=== PATIENT | female | born 1940 | race Caucasian/White ===

== ENCOUNTER 2020-02-13 17:55 | Emergency (ER) | payer MEDICARE, OTHER ==
--- NOTE | 2020-02-13 18:22 | ERPHSYRPT ---
- History of Present Illness Time Seen by Provider: 02/13/20 18:10 Source: patient Exam Limitations: no limitations Patient Subjective Stated Complaint: Pt states "About 5 pm, I got this odd pain in my head in one spot and I felt really odd. The pain lasted only a few seconds but I did not like it." Triage Nursing Assessment: Pt presented alert and oriented X 3, skin pwd pt ambulates with an upright steady gait, able to speak in clear full sentences. Pt has no facial droop, no unilateral weakness. Physician History: 79 years old female presented in the ER with chief complaint of off-and-on dizziness lightheadedness for the last few days and around 1710 she had a sudden onset sharp pain right parietal area which lasted for a few seconds and improved without any intervention. She was feeling more dizzy/lightheaded and not feeling herself for a few minutes but started to improve. He was also feeling as if she was going to pass out and later broken to sweats. She was also having some palpitations but no shortness of breath. She denies any room spinning sensation denies any numbness tingling or focal weakness. Denies any facial droop, difficulty speech or visual symptoms. 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 No abdominal pain nausea or vomiting reported. Patient is feeling better now Denies any difficulty ambulation or loss of balance. Also reported having similar symptoms multiple times over the course of the years but lately getting a little bit more frequent. No chest pain. Time of Onset/Last Time Seen Normal: 1710 today Timing/Duration: hour(s), sudden, improved Severity: moderate Character of Deficits: none Deficits: no difficulties Baseline/Normal Cognition: alert oriented x 3 Current Cognition: alert oriented x 3 Baseline Gait: walks w/o assistance Associated Symptoms: denies symptoms Allergies/Adverse Reactions: No Known Drug Allergies Allergy (Verified 10/30/19 13:05) Home Medications: Amlodipine Besylate 5 mg [Norvasc 5 mg] 5 mg PO DAILY 04/27/19 [History] Denosumab 60 mg [Prolia 60 mg Injection] 60 mg SQ UD 04/27/19 [History] Lisinopril 20 mg [Zestril 20 MG] 20 mg PO DAILY 04/27/19 [History] Multivitamin [Multivitamins] 1 each PO DAILY 04/27/19 [History] Temazepam 15 mg [Restoril 15 MG] 1 cap PO DAILY 02/13/20 [History] Hx Tetanus, Diphtheria Vaccination/Date Given: Yes Hx Influenza Vaccination/Date Given: Yes Hx Pneumococcal Vaccination/Date Given: Yes Immunizations Up to Date: Yes Travel Risk - International Travel Have you traveled outside of the country in past 3 weeks: No Have you or anyone close to you been diagnosed with or: No Do your reside in a community with a known COVID-19 case?: Yes If Yes where:: [place] - Coronavirus Screening Has patient experienced Coronavirus symptoms: No - Review of Systems Constitutional: No Symptoms Eyes: No Symptoms Ears, Nose, & Throat: No Symptoms Respiratory: No Symptoms Cardiac: Palpitations Abdominal/Gastrointestinal: No Symptoms Genitourinary Symptoms: No Symptoms Musculoskeletal: No Symptoms Skin: No Symptoms Neurological: No Symptoms, Headache Psychological: No Symptoms Endocrine: No Symptoms Hematologic/Lymphatic: No Symptoms Immunological/Allergic: No Symptoms - Past Medical History Pertinent Past Medical History: Yes Neurological History: No Pertinent History ENT History: No Pertinent History Cardiac History: Hypertension Respiratory History: No Pertinent History Endocrine Medical History: No Pertinent History Musculoskeletal History: Osteoarthritis GI Medical History: GERD History: No Pertinent History Psycho-Social History: No Pertinent History Female Reproductive Disorders: No Pertinent History Other Medical History: Neck surgery due to DDD - Past Surgical History Past Surgical History: Yes Neuro Surgical History: Other Cardiac: No Pertinent History Respiratory: No Pertinent History Gastrointestinal: Appendectomy Genitourinary: No Pertinent History Musculoskeletal: Orthopedic Surgery Female Surgical History: Hysterectomy Other Surgical History: neck, l thumb - Social History Smoking Status: Former smoker Exposure to second hand smoke: Yes Drug Use: none Patient Lives Alone: Yes - Female History Hx Now: No - Nursing Vital Signs Nursing Vital Signs: Initial Vital Signs Temperature 98.2 F 02/13/20 18:00 Pulse Rate 90 02/13/20 18:00 Respiratory Rate 18 02/13/20 18:00 Blood Pressure 159/94 02/13/20 18:00 O2 Sat by Pulse Oximetry 97 02/13/20 18:00 Pain Scale Pain Intensity 0 - [place] Coma Scale Best Eye Response ([place]): (4) open spontaneously Best Verbal Response ([place]): (5) oriented Best Motor Response ([place]lee): (6) obeys commands Ashlee Total: 15 - Physical Exam General Appearance: no apparent distress, alert, anxiety Eye Exam: bilateral eye: normal inspection, PERRL, EOMI Ears, Nose, Throat Exam: normal ENT inspection, TMs normal, pharynx normal Neck Exam: normal inspection, non-tender, supple, full range of motion Respiratory: normal breath sounds, lungs clear Cardiovascular: regular rate/rhythm, normal heart sounds Gastrointestinal: soft, No tenderness, No distention Back Exam: normal inspection Extremity Exam: normal inspection, normal range of motion Mental Status: alert, oriented x 3, cooperative link cutter Exam: normal hearing, normal speech, PERRL Coordination/Gait: normal finger to nose, normal gait, normal cerebellar function Motor/Sensory: negative Babinski's sign, weak motor strength LUE (Chronically) DTR: bicep (R): 2+, bicep (L): 2+, knee (R): 2+, knee (L): 2+ Skin Exam: normal color SpO2 Interpretation: normal SpO2: 97 - Course EKG Interpreted by Me: RATE (84), Sinus Rhythm, NORMAL AXIS, NORMAL INTERVALS, Q -wave (Anterior leads), Other (LVH) Ordered Tests: Active Orders 24 hr Category Date Time Status Electron Beam Photo Mask Maker STAT Care 02/13/20 18:23 Active EKG-ER Only STAT Care 02/13/20 18:22 Active IV Insertion STAT Care 02/13/20 18:22 Active NPO (ED) STAT Care 02/13/20 18:22 Active Pulse Oximetry (ED) STAT Care 02/13/20 18:22 Active CHEST 1 VIEW (PORTABLE) Stat Exams 02/13/20 18:22 Taken HEAD WITHOUT CONTRAST [CT] Stat Exams 02/13/20 18:22 Taken BMP Stat Lab 02/13/20 18:15 Completed CBC W DIFF Stat Lab 02/13/20 18:15 Completed PTT Stat Lab 02/13/20 18:15 Completed TROPONIN Q3H Lab 02/13/20 18:15 Completed TROPONIN Q3H Lab 02/13/20 21:30 Ordered TROPONIN Q3H Lab 02/14/20 00:30 Ordered TROPONIN Q3H Lab 02/14/20 03:30 Ordered TROPONIN Q3H Lab 02/14/20 06:30 Ordered UA W/RFX UR CULTURE Stat Lab 02/13/20 18:47 Completed Lab/Rad Data: Laboratory Result Diagrams 02/13/20 18:15 02/13/20 18:15 Laboratory Results 02/13/20 02/13/20 02/13/20 Range/Units 18:47 18:15 18:15 WBC (4.0-10.5) K/mm3 RBC (4.1-5.4) M/mm3 Hgb (12.0-16.0) gm/dl Hct (35-47) % MCV (78-100) fl MCH (26-32) pg MCHC (32-36) g/dl RDW (11.5-14.0) % Plt Count (150-450) K/mm3 MPV (7.5-11.0) fl Gran % (36.0-66.0) % Eos # (Auto) (0-0.5) Absolute Lymphs (auto) (1.0-4.6) Absolute Monos (auto) (0.0-1.3) Lymphocytes % (24.0-44.0) % Monocytes % (0.0-12.0) % Eosinophils % (0.00-5.0) % Basophils % (0.0-0.4) % Absolute Granulocytes (1.4-6.9) Basophils # (0-0.4) APTT 27.6 (25.3-37.0) SECONDS Sodium (137-145) mmol/L Potassium (3.5-5.1) mmol/L Chloride (98-107) mmol/L Carbon Dioxide (22-30) mmol/L Anion Gap (5-15) MEQ/L BUN (7-17) mg/dL Creatinine (0.52-1.04) mg/dL Estimated GFR ML/MIN Glucose (74-106) mg/dL Calcium (8.4-10.2) mg/dL Troponin I 0.019 (0.000-0.034) ng/mL Urine Color YELLOW (YELLOW) Urine Appearance SLIGHTLY CLOUDY (CLEAR) Urine pH 6.0 (5-6) Ur Specific [place] 1.011 (1.005-1.025) Urine Protein NEGATIVE (Negative) Urine Ketones NEGATIVE (NEGATIVE) Urine Blood MODERATE (0-5) [place]/ul Urine Nitrite NEGATIVE (NEGATIVE) Urine Bilirubin NEGATIVE (NEGATIVE) Urine Urobilinogen NEGATIVE (0-1) mg/dL Ur Leukocyte Esterase NEGATIVE (NEGATIVE) Urine WBC (Auto) 0-2 (0-5) /HPF Urine RBC (Auto) 3-5 (0-2) /HPF U Epithel Cells (Auto) NONE (FEW) /HPF Urine Bacteria (Auto) NONE (NEGATIVE) /HPF Urine Culture Reflexed NO (NO) Urine Glucose NEGATIVE (NEGATIVE) mg/dL 02/13/20 02/13/20 Range/Units 18:15 18:15 WBC 9.2 (4.0-10.5) K/mm3 RBC 4.34 (4.1-5.4) M/mm3 Hgb 13.6 (12.0-16.0) gm/dl Hct 41.8 (35-47) % MCV 96.3 (78-100) fl MCH 31.3 (26-32) pg MCHC 32.5 (32-36) g/dl RDW 13.0 (11.5-14.0) % Plt Count 296 (150-450) K/mm3 MPV 10.8 (7.5-11.0) fl Gran % 47.9 (36.0-66.0) % Eos # (Auto) 0.17 (0-0.5) Absolute Lymphs (auto) 3.68 (1.0-4.6) Absolute Monos (auto) 0.93 (0.0-1.3) Lymphocytes % 39.9 (24.0-44.0) % Monocytes % 10.1 (0.0-12.0) % Eosinophils % 1.8 (0.00-5.0) % Basophils % 0.3 (0.0-0.4) % Absolute Granulocytes 4.42 (1.4-6.9) Basophils # 0.03 (0-0.4) APTT (25.3-37.0) SECONDS Sodium 141 (137-145) mmol/L Potassium 4.6 (3.5-5.1) mmol/L Chloride 109 H (98-107) mmol/L Carbon Dioxide 25 (22-30) mmol/L Anion Gap 11.3 (5-15) MEQ/L BUN 20 H (7-17) mg/dL Creatinine 0.59 (0.52-1.04) mg/dL Estimated GFR > 60.0 ML/MIN Glucose 95 (74-106) mg/dL Calcium 8.9 (8.4-10.2) mg/dL Troponin I (0.000-0.034) ng/mL Urine Color (YELLOW) Urine Appearance (CLEAR) Urine pH (5-6) Ur Specific [place] (1.005-1.025) Urine Protein (Negative) Urine Ketones (NEGATIVE) Urine Blood (0-5) [place]/ul Urine Nitrite (NEGATIVE) Urine Bilirubin (NEGATIVE) Urine Urobilinogen (0-1) mg/dL Ur Leukocyte Esterase (NEGATIVE) Urine WBC (Auto) (0-5) /HPF Urine RBC (Auto) (0-2) /HPF U Epithel Cells (Auto) (FEW) /HPF Urine Bacteria (Auto) (NEGATIVE) /HPF Urine Culture Reflexed (NO) Urine Glucose (NEGATIVE) mg/dL - Progress Progress: improved, re-examined Progress Note: 02/13/20 20:23 9 years old is evaluated for sudden onset right-sided headache for few seconds and lightheadedness with feeling of passing out associated with palpitations. She has grossly nonfocal neuro exam for any new deficit but she has some chronic numbness in hands and feet and some weakness in the left forearm/hand. She is made stroke activated. CT head did not show any new findings but old stroke related changes. EKG negative for ischemic changes or arrhythmias. I have obtained specialist construction equipment mechanic neurology consult who do not think patient has stroke but more of a presyncope or dizziness due to cardiac causes possible intermittent arrhythmias and needs outpatient Holter monitoring and further evaluation. I have offered patient observation admission with telemetry she wants to go home. I think this is reasonable And she would follow-up outpatient with her primary care. She remained asymptomatic throughout stay in the ER. Discussed signs symptoms of worsening needing return to ER which she seems understanding. Stable for discharge. Discussed with : Other (Tele neurology) Counseled pt/family regarding: lab results, diagnosis, need for follow-up, rad results - Departure Departure Disposition: Home Clinical Impression: Dizziness, Palpitations Condition: Stable Critical Care Time: No Referrals: GOLDY URENA [Primary Care Provider] - (1-2 days for re evaluation and holter monitoring ) GAL CRAIG [ACTIVE STAFF] - (Call for appointment in 1 to 2 days) Instructions: Dizziness, Nonvertigo, (DC) Additional Instructions: Plenty of fluids. Follow-up with your primary care physician for reevaluation and Holter monitoring also may need cardiology referral/evaluation. Return to ER for any worsening or recurrence of symptoms.
[2020-02-13 18:44] LABS: Absolute Neutrophil Ct (ANC) 4.42 (1.4-6.9); BASOPHIL % 0.3 % (0.0-0.4); Basophil (Absolute #) 0.03 (0-0.4); Eosinophil % 1.8 % (0.00-5.0); Eosinophil (Absolute #) 0.17 (0-0.5); Hematocrit 41.8 % (35-47); Hemoglobin 13.6 gm/dl (12.0-16.0); Lymphocyte (Absolute #) 3.68 (1.0-4.6); Lymphocytes % 39.9 % (24.0-44.0); Mean Cell Volume 96.3 fl (78-100); Mean Corpuscular Hemoglobin 31.3 pg (26-32); Mean Corpuscular Hgb Concent. 32.5 g/dl (32-36); Mean Platelet Volume 10.8 fl (7.5-11.0); Monocyte (Absolute #) 0.93 (0.0-1.3); Monocytes % 10.1 % (0.0-12.0); Neutrophil % 47.9 % (36.0-66.0); Platelet Count 296 K/mm3 (150-450); Red Blood Count 4.34 M/mm3 (4.1-5.4); White Blood Count 9.2 K/mm3 (4.0-10.5)
[2020-02-13 18:53] LABS: ANION GAP 11.3 MEQ/L (5-15); BLOOD UREA NITROGEN 20 mg/dL (7-17); CHLORIDE 109 mmol/L (98-107); Calcium 8.9 mg/dL (8.4-10.2); Carbon Dioxide 25 mmol/L (22-30); Creatinine 1 0.59 mg/dL (0.52-1.04); Glucose 95 mg/dL (74-106); Potassium 4.6 mmol/L (3.5-5.1); SODIUM 141 mmol/L (137-145)
[2020-02-13 18:58] LABS: Appearance SLIGHTLY CLOUDY (CLEAR); Bilirubin NEGATIVE (NEGATIVE); Blood MODERATE Ery/ul (0-5); Glucose NEGATIVE (NEGATIVE); Ketones NEGATIVE (NEGATIVE); Leukocyte Esterase NEGATIVE (NEGATIVE); Nitrite NEGATIVE (NEGATIVE); Protein,Urine Dip NEGATIVE (Negative); Specific Gravity 1.011 (1.005-1.025); Urobilinogen NEGATIVE mg/dL (0-1); WBC 0-2 /HPF (0-5)
[2020-02-13 20:24] VITALS: BP 144/70; PULSE 85
[2020-02-13 20:25] VITALS: O2SAT 97
--- NOTE | 2020-02-14 08:39 | XRAY ---
Indication: Dizziness. Possible stroke. Comparison: None Portable chest demonstrates minimal bibasilar fibrosis/scarring and small right lung base calcified granuloma. No focal infiltrate, consolidation, or large effusion. Heart is not enlarged. Descending aorta tortuous. Bony thorax intact with osteopenia, mild degenerative changes, and partially visualized lower cervical fusion hardware. Impression: Nonacute chest with chronic features.
--- NOTE | 2020-02-14 08:39 | XRAY ---
Indication: Dizziness. Possible stroke. Multiple contiguous axial images obtained through the head without contrast. Comparison: None There is age-appropriate global atrophy and moderate periventricular degenerative micro-ischemia bilaterally. Left vertex demonstrates small focus of encephalomalacia posteriorly favoring old infarct. Additional small bilateral basal ganglia infarcts. No acute intracranial hemorrhage, hydrocephalus, or mass effect. Fourth ventricle is midline. Bony calvarium intact. Visualized paranasal sinuses and mastoid air cells are clear. Impression: 1. Atrophy and degenerative micro-ischemia within normal limits for patient's age. 2. 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 3. No acute intracranial abnormalities. Follow-up CT or MRI may yield further information if there remains clinical concern.
== END 2020-02-13 20:35 | disposition home or self-care (01) ==
LOC: ED 17:55
DX: R42 Dizziness and giddiness (principal); R00.2 Palpitations; Z79.899 Other long term (current) drug therapy; K21.9 Gastro-esophageal reflux disease without esophagitis; M50.30 Other cervical disc degeneration, unspecified cervical region; R55 Syncope and collapse
CPT/HCPCS: 36000; 36415; 70450; 71045; 80048; 81001; 84484; 85025; 85730; 93005; 93041; 94760; 99284

== ENCOUNTER 2021-08-31 15:48 | Emergency (ER) | payer MEDICARE, OTHER ==
[2021-08-31] MEDS ORDERED: TORAdol 30 mg Injection IV ONE (16:28)
[2021-08-31] MEDS ORDERED: TORAdol 30 mg Injection ONE (16:29)
[2021-08-31 16:48] LABS: Absolute Neutrophil Ct (ANC) 3.89 (1.4-6.9); BASOPHIL % 0.3 % (0.0-0.4); Basophil (Absolute #) 0.02 (0-0.4); Eosinophil % 2.4 % (0.00-5.0); Eosinophil (Absolute #) 0.19 (0-0.5); Hemoglobin 12.9 gm/dl (12.0-16.0); Lymphocyte (Absolute #) 3.09 (1.0-4.6); Lymphocytes % 39.1 % (24.0-44.0); Mean Cell Volume 96.5 fl (78-100); Mean Corpuscular Hemoglobin 30.4 pg (26-32); Mean Corpuscular Hgb Concent. 31.5 g/dl (32-36); Mean Platelet Volume 10.2 fl (7.5-11.0); Monocyte (Absolute #) 0.72 (0.0-1.3); Monocytes % 9.1 % (0.0-12.0); Neutrophil % 49.1 % (36.0-66.0); Platelet Count 321 K/mm3 (150-450); Red Blood Count 4.25 M/mm3 (4.1-5.4); Red Cell Distribution Width 12.8 % (11.5-14.0); White Blood Count 7.9 K/mm3 (4.0-10.5)
--- NOTE | 2021-08-31 16:48 | ERPHSYRPT ---
- History of Present Illness Source: patient Exam Limitations: no limitations Patient Subjective Stated Complaint: PT states "I fell on tuesday and my lower back and right side hurts." Triage Nursing Assessment: PT presented alert and oriented X3, skin wpd Pt ambulates with a limp. Pt has slight bruising noted to lower back and tenderness to right side. 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 Pt denies LOC/head injury/C,T, and L spine pain/hip pain/Upper-lower extremity pain. She denies syncope/chest pain/focal weakness. Occurred: other (3 days ago) Reason for Fall: slipped Injuries/Pain Location: back (R lateral-posterior inferior thorax/R CVA) Loss of Consciousness: no loss of consciousness Quality: aching Severity of Pain-Max: moderate Severity of Pain-Current: moderate Modifying Factors: Improves With: immobilization Associated Symptoms (Fall): back pain, No abdominal pain, No confusion, No chest pain, No dizziness, No extremity injury, No headache, No lightheadedness, No muscle spasms, No nausea, No neck pain, No ringing in ears, No seizures, No shortness of breath, No slurred speech, No trouble walking, No vomiting, No vision changes Allergies/Adverse Reactions: No Known Drug Allergies Allergy (Verified 05/29/21 09:07) Home Medications: Amlodipine Besylate 5 mg [Norvasc 5 mg] 5 mg PO DAILY 04/27/19 [History] Denosumab 60 mg [Prolia 60 mg Injection] 60 mg SQ UD 04/27/19 [History] Lisinopril 20 mg [Zestril 20 MG] 20 mg PO DAILY 04/27/19 [History] Multivitamin [Multivitamins] 1 each PO DAILY 04/27/19 [History] Temazepam 15 mg [Restoril 15 MG] 1 cap PO DAILY 02/13/20 [History] Hx Tetanus, Diphtheria Vaccination/Date Given: Yes Hx Influenza Vaccination/Date Given: Yes Hx Pneumococcal Vaccination/Date Given: Yes Immunizations Up to Date: Yes Travel Risk - International Travel Have you traveled outside of the country in past 3 weeks: No - Coronavirus Screening Are you exhibiting any of the following symptoms?: No Close contact with a COVID-19 positive Pt in past 14-21 Days: No - Vaccine Status Have you recieved a Covid-19 vaccination: Yes 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: [employer] - Vaccination Dates Date of 2cond Vaccination (if applicable): 10/2020 Comment: booster in may - Review of Systems Constitutional: No Symptoms Eyes: No Symptoms Ears, Nose, & Throat: No Symptoms Respiratory: No Symptoms Cardiac: No Symptoms Abdominal/Gastrointestinal: No Symptoms Genitourinary Symptoms: No Symptoms Musculoskeletal: No Symptoms, Back Pain Skin: No Symptoms Neurological: No Symptoms Psychological: No Symptoms Endocrine: No Symptoms Hematologic/Lymphatic: No Symptoms Immunological/Allergic: No Symptoms - Past Medical History Pertinent Past Medical History: Yes Neurological History: No Pertinent History ENT History: No Pertinent History Cardiac History: Hypertension Respiratory History: No Pertinent History Endocrine Medical History: No Pertinent History Musculoskeletal History: Osteoarthritis GI Medical History: GERD History: No Pertinent History Psycho-Social History: No Pertinent History Female Reproductive Disorders: No Pertinent History Other Medical History: Neck surgery due to DDD - Past Surgical History Past Surgical History: Yes Neuro Surgical History: Other Cardiac: No Pertinent History Respiratory: No Pertinent History Gastrointestinal: Appendectomy Genitourinary: No Pertinent History Musculoskeletal: Orthopedic Surgery Female Surgical History: Hysterectomy Other Surgical History: neck, l thumb - Social History Smoking Status: Former smoker Exposure to second hand smoke: No Drug Use: none Patient Lives Alone: No Significant Family History: no pertinent family hx - Female History Hx Now: No - Nursing Vital Signs Nursing Vital Signs: Initial Vital Signs Temperature 97.5 F 08/31/21 16:01 Pulse Rate 76 08/31/21 16:01 Respiratory Rate 20 08/31/21 16:01 Blood Pressure 161/72 08/31/21 16:01 O2 Sat by Pulse Oximetry 95 08/31/21 16:01 Pain Scale Pain Intensity 4 Hypertensive - [place] Coma Score Best Eye Response ([place]lee): (4) open spontaneously Best Verbal Response ([place]): (5) oriented Best Motor Response ([place]): (6) obeys commands Ashlee Total: 15 - Physical Exam General Appearance: no apparent distress Head Injury: no evidence of injury Eye Exam: PERRL/EOMI, eyes nml inspection ENT Exam: airway nml, nml ext.inspection, No evidence of ENT injury, No clear fluid (ears), No clear fluid (nose), No midface instability Neck Exam: supple, trachea midline, full range of motion, normal inspection (C- spine nttp) Respiratory/Chest Exam: normal breath sounds, No chest tenderness, No respiratory distress, No ecchymosis Cardiovascular Exam: normal heart sounds, regular rate/rhythm, No murmur Gastrointestinal Exam: soft, normal bowel sounds, No tenderness Back Exam: other (R posterior-lateral, inferior thorax TTP/R CVA TTP) Extremity Exam: normal inspection, normal range of motion, capillary refill <3 sec, pelvis stable Peripheral Pulses: carotid (R): 2+, carotid (L): 2+ Neurologic Exam: alert, oriented x 3, cooperative, painter helper spray II-XII nml as tested, normal mood/affect, nml cerebellar function, nml station & gait, sensation nml, No motor deficits, No sensory deficit Skin Exam: normal color, warm, dry SpO2 Interpretation: normal SpO2: 95 O2 Delivery: Room Air - Course Nursing assessment & vital signs reviewed: Yes - CT Exams Chest CT Interpretation: Discussed w/radiologist (CT chest w contrast-Nothing acute) Abdomen/Pelvis CT Interpretation: Discussed w/radiologist (Fecal stasis/Enlarging B renal cysts) Ordered Tests: Active Orders 24 hr Category Date Time Status ABDOMEN AND PELVIS W CONTRAST [CT] Stat Exams 08/31/21 16:27 Taken CHEST WITH CONTRAST [CT] Stat Exams 08/31/21 16:27 Taken CBC W DIFF Stat Lab 08/31/21 16:40 Completed CMP Stat Lab 08/31/21 16:40 Completed Medication Summary Discontinued Medications Generic Name Dose Route Start Last Admin Trade Name Varinder PRN Reason Stop Dose Admin Ketorolac Tromethamine 15 mg 08/31/21 16:28 08/31/21 16:30 Ketorolac Tromethamine 30 Mg/Ml Inj IV 08/31/21 16:29 15 mg STAT ONE Administration Ketorolac Tromethamine Confirm 08/31/21 16:29 Ketorolac Tromethamine 30 Mg/Ml Inj Administered 08/31/21 16:30 Dose 30 mg .ROUTE .STK-MED ONE Lab/Rad Data: Laboratory Result Diagrams 08/31/21 16:40 08/31/21 16:40 Laboratory Results 08/31/21 08/31/21 Range/Units 16:40 16:40 WBC 7.9 (4.0-10.5) K/mm3 RBC 4.25 (4.1-5.4) M/mm3 Hgb 12.9 (12.0-16.0) gm/dl Hct 41.0 (35-47) % MCV 96.5 (78-100) fl MCH 30.4 (26-32) pg MCHC 31.5 L (32-36) g/dl RDW 12.8 (11.5-14.0) % Plt Count 321 (150-450) K/mm3 MPV 10.2 (7.5-11.0) fl Gran % 49.1 (36.0-66.0) % Eos # (Auto) 0.19 (0-0.5) Absolute Lymphs (auto) 3.09 (1.0-4.6) Absolute Monos (auto) 0.72 (0.0-1.3) Lymphocytes % 39.1 (24.0-44.0) % Monocytes % 9.1 (0.0-12.0) % Eosinophils % 2.4 (0.00-5.0) % Basophils % 0.3 (0.0-0.4) % Absolute Granulocytes 3.89 (1.4-6.9) Basophils # 0.02 (0-0.4) Sodium 138 (137-145) mmol/L Potassium 4.3 (3.5-5.1) mmol/L Chloride 105 (98-107) mmol/L Carbon Dioxide 25 (22-30) mmol/L Anion Gap 12.4 (5-15) MEQ/L BUN 14 (7-17) mg/dL Creatinine 0.85 (0.52-1.04) mg/dL Estimated GFR > 60.0 ML/MIN Glucose 91 (74-106) mg/dL Calcium 8.8 (8.4-10.2) mg/dL Total Bilirubin 0.50 (0.2-1.3) mg/dL AST 29 (14-36) U/L ALT 19 (0-35) U/L Alkaline Phosphatase 59 (38-126) U/L Serum Total Protein 6.8 (6.3-8.2) g/dL Albumin 4.0 (3.5-5.0) g/dL - Progress Progress: improved Progress Note: 08/31/21 20:41 15mg IV Toradol 08/31/21 21:16 CT scan results reviewed w pt Counseled pt/family regarding: lab results, diagnosis, need for follow-up, rad results - Departure Departure Disposition: Home Clinical Impression: Contusion, Back contusion Condition: Stable Critical Care Time: No Referrals: ANTONIA FORBES [Primary Care Provider] - Follow up/PCP as directed Instructions: Contusion (DC), Preventing Falls Additional Instructions: Pain meds as needed(use a stool softener with pain meds) Follow up with your family MD for continued pain Return to ER as needed Prescriptions: Hydrocodone/Acetaminophen [Hydrocodone-Acetamin 5-325 mg] 1 tab PO Q6HPRN PRN #8 tablet MDD 4 PRN Reason: Pain
[2021-08-31 17:27] LABS: ALKALINE PHOSPHATASE 59 U/L (38-126); ANION GAP 12.4 MEQ/L (5-15); BLOOD UREA NITROGEN 14 mg/dL (7-17); CHLORIDE 105 mmol/L (98-107); Calcium 8.8 mg/dL (8.4-10.2); Carbon Dioxide 25 mmol/L (22-30); Creatinine 1 0.85 mg/dL (0.52-1.04); EST GLOMERULAR FILTRATION RATE > 60.0 ML/MIN; Glucose 91 mg/dL (74-106); Potassium 4.3 mmol/L (3.5-5.1); SGOT/AST 29 U/L (14-36); SGPT/ALT 19 U/L (0-35); SODIUM 138 mmol/L (137-145); Total Protein 6.8 g/dL (6.3-8.2)
[2021-08-31 17:48] VITALS: BP 155/61
[2021-08-31 20:43] VITALS: O2SAT 95
[2021-08-31 20:53] VITALS: PULSE 72
--- NOTE | 2021-09-01 09:10 | XRAY ---
Indication: Pain following fall 4 days ago. Multiple contiguous axial images obtained through the chest using 80 cc Isovue 370 contrast. Comparison: None Lungs demonstrate moderate diffuse pulmonary emphysema, mild bibasilar fibrosis/scarring, and small right posterior garter calcified granuloma. No suspicious pulmonary mass, infiltrate, consolidation, effusion, or pneumothorax. Heart is not enlarged. Aorta is normal in course and caliber. Small right hilar calcified node. No pathologic mediastinal/hilar lymphadenopathy. Small hiatal hernia. Bony thorax demonstrate osteopenia, mild/moderate degenerative changes throughout the spine, moderate degenerative changes of both shoulders, and incompletely visualized lower cervical fusion hardware. CT abdomen/pelvis reported separately. Impression: 1. Pulmonary emphysema, scattered fibrosis/scarring, small hiatal hernia, chronic bony findings, and old granulomatous disease. 2. Remaining CT chest with contrast exam is negative.
--- NOTE | 2021-09-01 09:15 | XRAY ---
Indication: Pain following fall 4 days ago. Multiple contiguous axial images obtained through the abdomen and pelvis using 80 cc Isovue 370 contrast. Comparison: September 21, 2010. CT chest reported separately. Noncontrasted stomach and bowel loops appear nonobstructed. Normal appendix. There is now moderate fecal debris in the ascending and transverse colon. New descending/sigmoid diverticulosis. No free fluid/air. Interval enlarging bilateral renal cysts, largest right midpole measuring 3.5 x 2.7 cm. Again a few splenic calcified granulomas and hysterectomy. Remaining liver, gallbladder, pancreas, spleen, adrenal glands, kidneys, ureters, and bladder are unremarkable. Again mild scattered aortoiliac calcifications. No AAA or pathologic retroperitoneal lymphadenopathy. Osseous structures again demonstrates osteopenia with progressive worsening mild/moderate degenerative spondylosis throughout the spine. Stable grade 1 L4 spondylolisthesis. Impression: 1. New right hemicolon fecal stasis and scattered colonic diverticulosis. 2. Enlarging multiple bilateral renal cysts. 3. Again osteopenia with worsening multilevel degenerative spondylosis with stable grade 1 L4 spondylolisthesis. 4. Remaining CT abdomen/pelvis with contrast exam is negative.
== END 2021-08-31 20:54 | disposition home or self-care (01) ==
LOC: ED 15:48
DX: S20.221A Contusion of right back wall of thorax, initial encounter (principal); W01.0XXA Fall on same level from slipping, tripping and stumbling without subsequent striking against object, initial encounter; I10 Essential (primary) hypertension; Z79.891 Long term (current) use of opiate analgesic
CPT/HCPCS: 36000; 36415; 71260; 74177; 80053; 85025; 96374; 99284; J1885

== ENCOUNTER 2023-06-29 13:21 | Observation (INO) | payer MEDICARE, OTHER ==
--- NOTE | 2023-06-29 13:30 | ERPHSYRPT ---
- History of Present Illness Time Seen by Provider: 06/29/23 13:29 Source: patient Exam Limitations: no limitations Physician History: This is an 82-year-old white female patient who was at home carrying a tray of chili when she got her shoe caught and then tripped falling directly onto her anterior left knee. He had significant pain. Patient has a history of hyperte nsion and osteoporosis. Ambulance/paramedics were contacted and they transported her to the emergency department. Patient denies chest pain. She denies shortness of breath. She has no pain issues anywhere else. Method of Injury: fell Quality: constant, aching, throbbing Severity of Pain-Max: moderate Severity of Pain-Current: moderate Lower Extremities Pain: thigh: left Associated Symptoms: unable to bear weight Allergies/Adverse Reactions: No Known Drug Allergies Allergy (Verified 06/29/23 13:29) Home Medications: Amlodipine Besylate 5 mg [Norvasc 5 mg] 5 mg PO DAILY 04/27/19 [History] Denosumab 60 mg [Prolia 60 mg Injection] 60 mg SQ UD 04/27/19 [History] Lisinopril 20 mg [Zestril 20 MG] 20 mg PO DAILY 04/27/19 [History] Multivitamin [Multivitamins] 1 each PO DAILY 04/27/19 [History] Hx Tetanus, Diphtheria Vaccination/Date Given: Yes Hx Influenza Vaccination/Date Given: Yes Hx Pneumococcal Vaccination/Date Given: Yes Travel Risk - International Travel Have you traveled outside of the country in past 3 weeks: No - Coronavirus Screening Are you exhibiting any of the following symptoms?: No Close contact with a COVID-19 positive Pt in past 14-21 Days: No - Vaccine Status Have you recieved a Covid-19 vaccination: Yes 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[employer]: [employer] - Vaccination Dates Date of 2cond Vaccination (if applicable): 10/2020 Comment: booster in may - Review of Systems Constitutional: No Symptoms Eyes: No Symptoms Ears, Nose, & Throat: No Symptoms Respiratory: No Symptoms Cardiac: No Symptoms Abdominal/Gastrointestinal: No Symptoms Genitourinary Symptoms: No Symptoms Musculoskeletal: Fall, Injury (Left anterior knee) Skin: No Symptoms Neurological: No Symptoms Psychological: No Symptoms Endocrine: No Symptoms Hematologic/Lymphatic: No Symptoms Immunological/Allergic: No Symptoms All Other Systems: Reviewed and Negative - Past Medical History Pertinent Past Medical History: Yes Neurological History: No Pertinent History ENT History: No Pertinent History Cardiac History: Hypertension Respiratory History: No Pertinent History Endocrine Medical History: No Pertinent History Musculoskeletal History: Osteoarthritis GI Medical History: GERD History: No Pertinent History Psycho-Social History: No Pertinent History Female Reproductive Disorders: No Pertinent History Other Medical History: Neck surgery due to DDD - Past Surgical History Past Surgical History: Yes Neuro Surgical History: Other Cardiac: No Pertinent History Respiratory: No Pertinent History Gastrointestinal: Appendectomy Genitourinary: No Pertinent History Musculoskeletal: Orthopedic Surgery Female Surgical History: Hysterectomy Other Surgical History: neck, l thumb - Social History Smoking Status: Former smoker Exposure to second hand smoke: No Drug Use: none Patient Lives Alone: No Significant Family History: no pertinent family hx - Nursing Vital Signs Nursing Vital Signs: Initial Vital Signs Temperature 97.8 F 06/29/23 13:31 Pulse Rate 74 06/29/23 13:31 Respiratory Rate 18 06/29/23 13:31 Blood Pressure 162/100 06/29/23 13:31 O2 Sat by Pulse Oximetry 99 06/29/23 13:31 Pain Scale Pain Intensity 9 - Physical Exam General Appearance: mild distress, alert, anxiety, thin Eyes, Ears, Nose, Throat Exam: normal ENT inspection, moist mucous membranes Neck Exam: normal inspection, non-tender, supple, full range of motion Cardiovascular/Respiratory Exam: chest non-tender, no respiratory distress Gastrointestinal/Abdominal Exam: non-tender Back Exam: normal inspection, normal range of motion, No CVA tenderness, No vertebral tenderness Hips Exam: bilateral: non-tender, normal inspection, normal range of motion, no evidence of injury Legs Exam: bilateral leg: non-tender, normal inspection, normal range of motion, no evidence of injury Knees Exam: right knee: non-tender, normal inspection, normal range of motion, no evidence of injury, left knee: bone tenderness (Anteriorly), soft tissue tenderness (Anteriorly), swelling (Anteriorly) Ankle Exam: bilateral ankle: non-tender, normal inspection, normal range of motion, no evidence of injury Foot Exam: bilateral foot: non-tender, normal inspection, normal range of motion, no evidence of injury Neuro/Tendon Exam: normal sensation, normal motor functions, normal tendon functions, responds to pain, no evidence tendon injury Mental Status Exam: alert, oriented x 3, cooperative Skin Exam: normal color, warm, dry SpO2 Interpretation: normal O2 Delivery: Room Air - Course Nursing assessment & vital signs reviewed: Yes EKG Interpreted by Me: RATE (80), NORMAL AXIS, NORMAL INTERVALS, Left Bundle Branch Block, Other (No acute ischemic changes on today's twelve-lead EKG.) Ordered Tests: Active Orders 24 hr Category Date Time Status EKG-ER Only STAT Care 06/29/23 13:35 Active IV Insertion STAT Care 06/29/23 13:35 Active KNEE (3 VIEWS) Stat Exams 06/29/23 13:37 Completed CBC W DIFF Stat Lab 06/29/23 13:55 Completed CMP Stat Lab 06/29/23 13:55 Completed PROTIME WITH INR Stat Lab 06/29/23 13:55 Completed Medication Summary Generic Name Dose Route Start Last Admin Trade Name Freq PRN Reason Stop Dose Admin Sodium Chloride 1,000 mls @ 50 mls/hr 06/29/23 13:45 06/29/23 13:53 Sodium Chloride 0.9% 1000 Ml IV 07/29/23 13:44 50 mls/hr .Q20H MARGOT Administration Discontinued Medications Generic Name Dose Route Start Last Admin Trade Name Freq PRN Reason Stop Dose Admin Morphine Sulfate 2 mg 06/29/23 13:35 06/29/23 13:55 Morphine Sulfate 2 Mg/Ml Inj IV 06/29/23 13:36 2 mg STAT ONE Administration Morphine Sulfate Confirm 06/29/23 13:40 Morphine Sulfate 2 Mg/Ml Inj Administered 06/29/23 13:41 Dose 2 mg .ROUTE .STK-MED ONE Morphine Sulfate 4 mg 06/29/23 14:36 06/29/23 14:39 Morphine Sulfate 4 Mg/Ml Injection IV 06/29/23 14:37 4 mg STAT ONE Administration Morphine Sulfate Confirm 06/29/23 14:39 Morphine Sulfate 4 Mg/Ml Injection Administered 06/29/23 14:40 Dose 4 mg .ROUTE .STK-MED ONE Ondansetron HCl 4 mg 06/29/23 13:35 06/29/23 13:54 Ondansetron Hcl 4 Mg/2 Ml Vial IV 06/29/23 13:36 4 mg STAT ONE Administration Ondansetron HCl Confirm 06/29/23 13:40 Ondansetron Hcl 4 Mg/2 Ml Vial Administered 06/29/23 13:41 Dose 4 mg .ROUTE .STK-MED ONE Lab/Rad Data: Laboratory Result Diagrams 06/29/23 13:55 06/29/23 13:55 Laboratory Results 06/29/23 06/29/23 06/29/23 Range/Units 13:55 13:55 13:55 WBC 14.9 H (4.0-10.5) x10^3/uL RBC 4.33 (4.1-5.4) x10^6/uL Hgb 12.9 (12.0-16.0) g/dL Hct 40.3 (35-47) % MCV 93.1 (78-100) fL MCH 29.8 (26-32) pg MCHC 32.0 (32-36) g/dL RDW 12.6 (11.5-14.0) % Plt Count 347 (150-450) x10^3/uL MPV 9.9 (7.5-11.0) fL Gran % 74.0 H (36.0-66.0) % Immature Gran % (Auto) 0.5 H (0.00-0.4) % Nucleat RBC Rel Count 0.0 (0.00-0.1) % Eos # (Auto) 0.12 (0-0.5) x10^3/uL Immature Gran # (Auto) 0.08 H (0.00-0.03) x10^3u/L Absolute Lymphs (auto) 2.77 (1.0-4.6) x10^3/uL Absolute Monos (auto) 0.79 (0.0-1.3) x10^3/uL Absolute Nucleated RBC 0.00 (0.00-0.01) x10^3u/L Lymphocytes % 18.6 L (24.0-44.0) % Monocytes % 5.3 (0.0-12.0) % Eosinophils % 0.8 (0.00-5.0) % Basophils % 0.8 (0.0-0.4) % Absolute Granulocytes 10.98 H (1.4-6.9) x10^3/uL Basophils # 0.12 (0-0.4) x10^3/uL PT 9.9 (9.4-12.5) SECONDS INR 0.90 (0.8-3.0) Sodium 140 (137-145) mmol/L Potassium 5.1 (3.5-5.1) mmol/L Chloride 107 (98-107) mmol/L Carbon Dioxide 26 (22-30) mmol/L Anion Gap 12.5 (5-15) MEQ/L BUN 13 (7-17) mg/dL Creatinine 0.75 (0.52-1.04) mg/dL Estimated GFR > 60.0 ML/MIN Glucose 94 (74-106) mg/dL Calcium 8.9 (8.4-10.2) mg/dL Total Bilirubin 0.40 (0.2-1.3) mg/dL AST 33 (14-36) U/L ALT 19 (0-35) U/L Alkaline Phosphatase 89 (38-126) U/L Serum Total Protein 7.2 (6.3-8.2) g/dL Albumin 4.1 (3.5-5.0) g/dL - Progress Progress: improved, pain not gone completely Progress Note: 06/29/23 14:05 This patient's medical issue is 1 of moderate complexity. Level complexity in the work-up performed is based on review of the patient's past medical history, review of the patient's medication list, review the patient's drug allergy list, history of present illness and physical findings on examination. The work-up in this patient includes placement of intravenous line, CBC, CMP, twelve-lead EKG, three-way view of the left knee, infusion of 4 mg intravenous Zofran, infusion of 2 mg intravenous morphine. 06/29/23 14:51 I reviewed the results of the laboratory data work-up. I interpreted them. There are no acute, emergent findings on the laboratory results. The x-ray of the right knee was interpreted by the radiologist. There is mildly displaced transverse fracture mid patella with anterior soft tissue swelling and small hemarthrosis. 06/29/23 15:[address] Hamilton, orthopedic surgeon at [facility]. I reviewed the patient history, work-up findings including the finding on x-ray of a mildly displaced transverse fracture mid patella. He stated that there is no need to have her transferred to an inpatient setting. We will she can be placed in a knee immobilizer with weightbearing as tolerated and use of walker or cane or crutches. We will provide her with pain control and she is to follow-up at the [facility] fracture clinic tomorrow, 06/30/2023. Counseled pt/family regarding: lab results, diagnosis, need for follow-up, rad results Medical Desision Making - Independent Historian Additional History obtained from: Family - Discussion of managment Care discussed with:: specialist (Dr. Hamilton, [facility] orthopedic surgeon) Reviewed:: Test results Agreed on:: need for follow-up Will see patient: In office (Fracture clinic, [facility], 06/30/2023) - Diagnostic Testing Diagnostic test were ordered, analyzed, and reviewed by me: Yes Radiological Interpretation: Reviewed by me, Teleradiologist Report - Risk of complications The pt has a mod risk of morbidity or mortality based on: Need for prescription drug management - Departure Departure Disposition: Home Clinical Impression: Patella fracture Condition: Stable Critical Care Time: No Referrals: ANTONIA FORBES [Primary Care Provider] - Follow up/PCP as directed Additional Instructions: Ice pack to area 3 times a day for the next 48 hours. Take your medication as prescribed. Follow-up tomorrow morning, 06/30/2023, at 8 AM at the [facility] fracture clinic. Be n.p.o. after midnight in case the fracture clinic decides on surgical intervention Prescriptions: Oxycodone HCl/Acetaminophen [Percocet 5-325 mg Tablet] 1 each PO Q8H PRN PRN #6 tablet MDD 3 PRN Reason: Moderate To Severe Pain
[2023-06-29] MEDS ORDERED: MORPHINE SULFATE 2 MG INJ IV ONE ×2 (13:35→15:33)
[2023-06-29] MEDS ORDERED: Zofran 4 MG/2 ML VIAL IV ONE (13:35)
[2023-06-29] MEDS ORDERED: Zofran 4 MG/2 ML VIAL ONE (13:40)
[2023-06-29] MEDS ORDERED: MORPHINE SULFATE 2 MG INJ ONE ×2 (13:40→15:36)
[2023-06-29] MEDS ORDERED: Sodium Chloride 0.9% 1000 ML 1,000 ML ONE (13:40)
[2023-06-29] MEDS ORDERED: Sodium Chloride 0.9% 1000 ML 1,000 ML IV SCH ×2 (13:45→18:46)
[2023-06-29 13:58] LABS: Absolute Neutrophil Ct (ANC) 10.98 x10^3/uL (1.4-6.9); BASOPHIL % 0.8 % (0.0-0.4); Basophil (Absolute #) 0.12 x10^3/uL (0-0.4); Eosinophil % 0.8 % (0.00-5.0); Eosinophil (Absolute #) 0.12 x10^3/uL (0-0.5); Hematocrit 40.3 % (35-47); Hemoglobin 12.9 g/dL (12.0-16.0); IMMATURE GRAN # 0.08 x10^3u/L (0.00-0.03); IMMATURE GRAN % 0.5 % (0.00-0.4); Lymphocyte (Absolute #) 2.77 x10^3/uL (1.0-4.6); Lymphocytes % 18.6 % (24.0-44.0); Mean Cell Volume 93.1 fL (78-100); Mean Corpuscular Hemoglobin 29.8 pg (26-32); Mean Platelet Volume 9.9 fL (7.5-11.0); Monocyte (Absolute #) 0.79 x10^3/uL (0.0-1.3); Monocytes % 5.3 % (0.0-12.0); Platelet Count 347 x10^3/uL (150-450); Red Blood Count 4.33 x10^6/uL (4.1-5.4); Red Cell Distribution Width 12.6 % (11.5-14.0); White Blood Count 14.9 x10^3/uL (4.0-10.5)
[2023-06-29 14:13] LABS: INR 0.9 (0.8-3.0); PROTIME 9.9 SECONDS (9.4-12.5)
[2023-06-29 14:14] LABS: ALBUMIN 4.1 g/dL (3.5-5.0); ALKALINE PHOSPHATASE 89 U/L (38-126); ANION GAP 12.5 MEQ/L (5-15); BLOOD UREA NITROGEN 13 mg/dL (7-17); CHLORIDE 107 mmol/L (98-107); Calcium 8.9 mg/dL (8.4-10.2); Carbon Dioxide 26 mmol/L (22-30); Creatinine 1 0.75 mg/dL (0.52-1.04); EST GLOMERULAR FILTRATION RATE > 60.0 ML/MIN; Glucose 94 mg/dL (74-106); Potassium 5.1 mmol/L (3.5-5.1); SGOT/AST 33 U/L (14-36); SGPT/ALT 19 U/L (0-35); SODIUM 140 mmol/L (137-145); Total Protein 7.2 g/dL (6.3-8.2)
--- NOTE | 2023-06-29 14:27 | XRAY ---
Indication: Pain following fall. Comparison: None 3 view left knee demonstrates mildly displaced transverse fracture mid patella with anterior soft tissue swelling and small hemarthrosis. Elsewhere osteopenia, minimal medial joint space narrowing, and minimal posterior vascular calcifications.
[2023-06-29] MEDS ORDERED: MORPHINE SULFATE 4 MG INJ IV ONE (14:36)
[2023-06-29] MEDS ORDERED: MORPHINE SULFATE 4 MG INJ ONE (14:39)
[2023-06-29] MEDS ORDERED: Zofran 4 MG/2 ML VIAL IV PRN (18:46)
[2023-06-29] MEDS ORDERED: TYLENOL 325 MG PO PRN (18:46)
[2023-06-29] MEDS: MORPHINE SULFATE 4 MG INJ IV PRN (20:59)
[2023-06-29] MEDS ORDERED: APRESOLINE 20 MG/ML INJ IV PRN (20:59)
--- NOTE | 2023-06-29 21:06 | PCM.HP ---
History of Present Illness - Chief Complaint Chief Complaint: Intractable knee pain History of Present Illness: is a 82 year old female with hx of osteoporosis and HTN presented to ER with c/o left knee pain. She tripped at home after stubbing her toes and falling onto her left knee. Xray here show transverse mildly displaced patella fracture. She is admitted for pain control, and ortho planning surgery tomorrow. She is resting now, surrounded by family. She says he pain is 7 out of 10. She denies passing out, syncope, LOC. Denies fever, chills, SOB, cough, sputum, chest pain, headache, confusion, dysuria - Review of Systems Constitutional: No Symptoms Eyes: No Symptoms Ears, Nose, & Throat: No Symptoms Respiratory: No Symptoms Cardiac: No Symptoms Abdominal/Gastrointestinal: No Symptoms Genitourinary Symptoms: No Symptoms Musculoskeletal: Fall, Joint Pain Skin: No Symptoms Neurological: No Symptoms Psychological: No Symptoms Endocrine: No Symptoms Hematologic/Lymphatic: No Symptoms Immunological/Allergic: No Symptoms Medications & Allergies Home Medications: Home Medication List Amlodipine Besylate 5 mg [Norvasc 5 mg] 5 mg PO DAILY 04/27/19 [History Confirmed 06/29/23] Lisinopril 20 mg [Zestril 20 MG] 20 mg PO DAILY 04/27/19 [History Confirme d 06/29/23] Amitriptyline HCl 25 mg [Amitriptyline 25 mg Tablet] 25 mg PO QHS 06/29/23 [History Confirmed 06/29/23] Calcium Carbonate/Vitamin D3 [Calcium 600 mg-D3 10 Mcg Sfgl] 600 mg PO DAILY 06/29/23 [History Confirmed 06/29/23] Cyanocobalamin (Vitamin B-12) [B-12] 1,000 mg PO DAILY 06/29/23 [History Confirmed 06/29/23] Oxycodone HCl/Acetaminophen [Percocet 5-325 mg Tablet] 1 each PO Q8H PRN PRN #6 tablet MDD 3 06/29/23 [Rx] Allergies/Adverse Reactions: Allergies Allergy/AdvReac Type Severity Reaction Status Date / Time No Known Drug Allergies Allergy Verified 06/29/23 13:29 - Past Medical History Past Medical History: Yes Neurological History: No Pertinent History ENT History: No Pertinent History Cardiac History: Hypertension Respiratory History: No Pertinent History Endocrine Medical History: No Pertinent History Musculoskelatal History: Osteoarthritis GI Medical History: GERD History: No Pertinent History Pyscho-Social History: No Pertinent History Reproductive Disorders: No Pertinent History Comment: Neck surgery due to DDD - Female History Are you now?: No - Past Surgical History Past Surgical History: Yes Neuro Surgical History: Other Cardiac History: No Pertinent History Respiratory Surgery: No Pertinent History GI Surgical History: Appendectomy Genitourinary Surgical Hx: No Pertinent History Musculskeletal Surgical Hx: Orthopedic Surgery Female Surgical History: Hysterectomy Other Surgical History: neck, l thumb, lower back - Social History Smoking Status: Never smoker Exposure to second hand smoke: No Alcohol: None Drug Use: none Significant Family History: no pertinent family hx - Physical Exam Vital Signs: Vital Signs - 24 hr Temp Pulse Resp BP Pulse Ox 06/29/23 19:34 97.8 F 92 H 18 120/57 96 06/29/23 18:46 96 06/29/23 18:37 97.1 F 76 16 141/63 97 06/29/23 17:04 85 18 132/97 95 06/29/23 15:37 84 18 164/90 94 L 06/29/23 14:35 83 18 187/101 95 06/29/23 14:27 80 176/82 96 06/29/23 13:31 97.8 F 74 18 162/100 99 General Appearance: no apparent distress Neurologic Exam: oriented x 3, cooperative Eye Exam: PERRL/EOMI, eyes nml inspection Ears, Nose, Throat Exam: normal ENT inspection Neck Exam: normal inspection, supple, full range of motion Respiratory Exam: normal breath sounds, lungs clear Cardiovascular Exam: regular rate/rhythm, normal heart sounds Gastrointestinal/Abdomen Exam: soft, normal bowel sounds Pelvic Exam: deferred Rectal Exam: deferred Back Exam: normal inspection Extremity Exam: other (swelling and pain ov er left patella) Skin Exam: normal color Results - Labs Lab/Micro Results: Lab Results-Last 24 Hours 06/29/23 06/29/23 06/29/23 Range/Units 13:55 13:55 13:55 WBC 14.9 H (4.0-10.5) x10^3/uL RBC 4.33 (4.1-5.4) x10^6/uL Hgb 12.9 (12.0-16.0) g/dL Hct 40.3 (35-47) % MCV 93.1 (78-100) fL MCH 29.8 (26-32) pg MCHC 32.0 (32-36) g/dL RDW 12.6 (11.5-14.0) % Plt Count 347 (150-450) x10^3/uL MPV 9.9 (7.5-11.0) fL Gran % 74.0 H (36.0-66.0) % Immature Gran % (Auto) 0.5 H (0.00-0.4) % Nucleat RBC Rel Count 0.0 (0.00-0.1) % Eos # (Auto) 0.12 (0-0.5) x10^3/uL Immature Gran # (Auto) 0.08 H (0.00-0.03) x10^3u/L Absolute Lymphs (auto) 2.77 (1.0-4.6) x10^3/uL Absolute Monos (auto) 0.79 (0.0-1.3) x10^3/uL Absolute Nucleated RBC 0.00 (0.00-0.01) x10^3u/L Lymphocytes % 18.6 L (24.0-44.0) % Monocytes % 5.3 (0.0-12.0) % Eosinophils % 0.8 (0.00-5.0) % Basophils % 0.8 (0.0-0.4) % Absolute Granulocytes 10.98 H (1.4-6.9) x10^3/uL Basophils # 0.12 (0-0.4) x10^3/uL PT 9.9 (9.4-12.5) SECONDS INR 0.90 (0.8-3.0) Sodium 140 (137-145) mmol/L Potassium 5.1 (3.5-5.1) mmol/L Chloride 107 (98-107) mmol/L Carbon Dioxide 26 (22-30) mmol/L Anion Gap 12.5 (5-15) MEQ/L BUN 13 (7-17) mg/dL Creatinine 0.75 (0.52-1.04) mg/dL Estimated GFR > 60.0 ML/MIN Glucose 94 (74-106) mg/dL Calcium 8.9 (8.4-10.2) mg/dL Total Bilirubin 0.40 (0.2-1.3) mg/dL AST 33 (14-36) U/L ALT 19 (0-35) U/L Alkaline Phosphatase 89 (38-126) U/L Serum Total Protein 7.2 (6.3-8.2) g/dL Albumin 4.1 (3.5-5.0) g/dL - Radiology Impressions Radiology Exams & Impressions: Radiology Procedures Category Date Time Status KNEE (3 VIEWS) Stat Exams 06/29/23 13:37 Completed Assessment/Plan (1) Patella fracture Current Visit: Yes Status: Acute Assessment & Plan: Left patella fracture: transverse and mildly displaced. Pain manage tonight, and ortho, Dr Hamilton, will see and plan surgery tomorrow Code(s): S82.009A - UNSP FRACTURE OF UNSP PATELLA, INIT FOR CLOS FX (2) Leukocytosis Current Visit: Yes Status: Acute Assessment & Plan: WBC 14.9 - due to stress response. Monitor. no fever, nor other complaint to suspect infection Code(s): D72.829 - ELEVATED WHITE BLOOD CELL COUNT, UNSPECIFIED (3) Essential (primary) hypertension Current Visit: Yes Status: Acute Assessment & Plan: BP high on arrival due to the pain. Resumed home meds - Amlodipine and Lisinopril. Added Hydralazine prn for SBP > 160, DBP > 100 Code(s): I10 - ESSENTIAL (PRIMARY) HYPERTENSION (4) Osteoporosis Current Visit: Yes Status: Acute Assessment & Plan: Continue calcium supplement. Follow-up with PCP for close monitoring Code(s): M81.0 - AGE-RELATED OSTEOPOROSIS W/O CURRENT PATHOLOGICAL FRACTURE Telemedicine Encounter - Telemedicine Encounter Telemedicine Encounter: The entirety of this encounter was performed via Telemedicine" Pt gave me verbal consent to have this telemedicine visit
[2023-06-29] MEDS ORDERED: HEPARIN 5000 UNITS/0.5 ML (HIGH RISK MED) SQ SCH (22:00)
[2023-06-29] MEDS ORDERED: AMITRIPTYLINE 25 MG TABLET PO SCH (22:00)
[2023-06-30] MEDS: MORPHINE SULFATE 4 MG INJ IV PRN (03:35)
[2023-06-30 05:04] LABS: Absolute Neutrophil Ct (ANC) 5.04 x10^3/uL (1.4-6.9); BASOPHIL % 1.1 % (0.0-0.4); Eosinophil % 2.7 % (0.00-5.0); Eosinophil (Absolute #) 0.25 x10^3/uL (0-0.5); Hematocrit 34.6 % (35-47); Hemoglobin 10.9 g/dL (12.0-16.0); IMMATURE GRAN # 0.03 x10^3u/L (0.00-0.03); IMMATURE GRAN % 0.3 % (0.00-0.4); Lymphocyte (Absolute #) 3.31 x10^3/uL (1.0-4.6); Lymphocytes % 35.6 % (24.0-44.0); Mean Corpuscular Hemoglobin 29.6 pg (26-32); Mean Corpuscular Hgb Concent. 31.5 g/dL (32-36); Mean Platelet Volume 10.2 fL (7.5-11.0); Monocyte (Absolute #) 0.58 x10^3/uL (0.0-1.3); Monocytes % 6.2 % (0.0-12.0); Neutrophil % 54.1 % (36.0-66.0); Platelet Count 309 x10^3/uL (150-450); Red Blood Count 3.68 x10^6/uL (4.1-5.4); Red Cell Distribution Width 12.9 % (11.5-14.0); White Blood Count 9.3 x10^3/uL (4.0-10.5)
[2023-06-30 05:05] VITALS: PULSE 91; TEMP 98.5
[2023-06-30 06:55] VITALS: BP 160/75; RESP 16; O2SAT 96
[2023-06-30] MEDS ORDERED: NORVASC 5 MG PO SCH (10:00)
[2023-06-30] MEDS ORDERED: Vitamin B-12 500 MCG PO SCH (10:00)
[2023-06-30] MEDS ORDERED: CALCIUM CARBONATE PO SCH (10:00)
[2023-06-30] MEDS ORDERED: Zestril 20 MG PO SCH (10:00)
[2023-06-30] MEDS ORDERED: NON-FORMULARY ITEM (Cyanocobalamin (Vitamin B-12) [B-12] 1,000 MCG Tablet) PO SCH (10:00)
[2023-06-30] MEDS ORDERED: Calcium 500MG W/Vit D Tablet PO SCH (10:00)
[2023-06-30] MEDS ORDERED: VITAMIN D3 PO SCH (10:00)
[2023-06-30] MEDS ORDERED: [UNRECOGNIZED DRUG - OTHER] PO SCH (10:00)
--- NOTE | 2023-06-30 11:31 | PCM.DS ---
Discharge Summary Date of Admission: 06/29/23 18:11 Date of Discharge: 06/30/23 Admitting Physician: RADHA BARFIELD MD Primary Care Provider: ANTONIA FORBES Allergies Allergies No Known Drug Allergies Allergy (Verified 06/29/23 13:29) Hospital Summary - Hospital Course Hospital Course: 06/29/23 is a 82 year old female with hx of osteoporosis and HTN presented to ER with c/o left knee pain. She tripped at home after stubbing her toes and falling onto her left knee. Xray here show transverse mildly displaced patella fracture. She is admitted for pain control, and ortho planning surgery tomorrow. She is resting now, surrounded by family. She says he pain is 7 out of 10. She denies passing out, syncope, LOC. Denies fever, chills, SOB, cough, sputum, chest pain, headache, confusion, dysuria 06/30/23 Was unable to see pt before leaving this AM. She was tx to ortho at [facility] for surgery. Due to surgery is she staying at [facility]. - Vitals & Intake/Output Vital Signs: Vital Signs Temperature 98.5 F 06/30/23 06:54 Pulse Rate 91 H 06/30/23 06:54 Respiratory Rate 16 06/30/23 06:54 Blood Pressure 160/75 06/30/23 06:54 O2 Sat by Pulse Oximetry 96 06/30/23 06:54 Intake & Output: Intake & Output 06/27/23 06/28/23 06/29/23 06/30/23 11:59 11:59 11:59 11:59 Intake Total 80 Balance 80 Weight 54.6 kg - Lab Result Diagrams: 06/30/23 04:57 06/29/23 13:55 Lab Results-Last 24 Hrs: Lab Results-Last 24 Hours 06/29/23 06/29/23 06/29/23 Range/Units 13:55 13:55 13:55 WBC 14.9 H (4.0-10.5) x10^3/uL RBC 4.33 (4.1-5.4) x10^6/uL Hgb 12.9 (12.0-16.0) g/dL Hct 40.3 (35-47) % MCV 93.1 (78-100) fL MCH 29.8 (26-32) pg MCHC 32.0 (32-36) g/dL RDW 12.6 (11.5-14.0) % Plt Count 347 (150-450) x10^3/uL MPV 9.9 (7.5-11.0) fL Gran % 74.0 H (36.0-66.0) % Immature Gran % (Auto) 0.5 H (0.00-0.4) % Nucleat RBC Rel Count 0.0 (0.00-0.1) % Eos # (Auto) 0.12 (0-0.5) x10^3/uL Immature Gran # (Auto) 0.08 H (0.00-0.03) x10^3u/L Absolute Lymphs (auto) 2.77 (1.0-4.6) x10^3/uL Absolute Monos (auto) 0.79 (0.0-1.3) x10^3/uL Absolute Nucleated RBC 0.00 (0.00-0.01) x10^3u/L Lymphocytes % 18.6 L (24.0-44.0) % Monocytes % 5.3 (0.0-12.0) % Eosinophils % 0.8 (0.00-5.0) % Basophils % 0.8 (0.0-0.4) % Absolute Granulocytes 10.98 H (1.4-6.9) x10^3/uL Basophils # 0.12 (0-0.4) x10^3/uL PT 9.9 (9.4-12.5) SECONDS INR 0.90 (0.8-3.0) Sodium 140 (137-145) mmol/L Potassium 5.1 (3.5-5.1) mmol/L Chloride 107 (98-107) mmol/L Carbon Dioxide 26 (22-30) mmol/L Anion Gap 12.5 (5-15) MEQ/L BUN 13 (7-17) mg/dL Creatinine 0.75 (0.52-1.04) mg/dL Estimated GFR > 60.0 ML/MIN Glucose 94 (74-106) mg/dL Calcium 8.9 (8.4-10.2) mg/dL Total Bilirubin 0.40 (0.2-1.3) mg/dL AST 33 (14-36) U/L ALT 19 (0-35) U/L Alkaline Phosphatase 89 (38-126) U/L Serum Total Protein 7.2 (6.3-8.2) g/dL Albumin 4.1 (3.5-5.0) g/dL 06/30/23 Range/Units 04:57 WBC 9.3 (4.0-10.5) x10^3/uL RBC 3.68 L (4.1-5.4) x10^6/uL Hgb 10.9 L (12.0-16.0) g/dL Hct 34.6 L (35-47) % MCV 94.0 (78-100) fL MCH 29.6 (26-32) pg MCHC 31.5 L (32-36) g/dL RDW 12.9 (11.5-14.0) % Plt Count 309 (150-450) x10^3/uL MPV 10.2 (7.5-11.0) fL Gran % 54.1 (36.0-66.0) % Immature Gran % (Auto) 0.3 (0.00-0.4) % Nucleat RBC Rel Count 0.0 (0.00-0.1) % Eos # (Auto) 0.25 (0-0.5) x10^3/uL Immature Gran # (Auto) 0.03 (0.00-0.03) x10^3u/L Absolute Lymphs (auto) 3.31 (1.0-4.6) x10^3/uL Absolute Monos (auto) 0.58 (0.0-1.3) x10^3/uL Absolute Nucleated RBC 0.00 (0.00-0.01) x10^3u/L Lymphocytes % 35.6 (24.0-44.0) % Monocytes % 6.2 (0.0-12.0) % Eosinophils % 2.7 (0.00-5.0) % Basophils % 1.1 (0.0-0.4) % Absolute Granulocytes 5.04 (1.4-6.9) x10^3/uL Basophils # 0.10 (0-0.4) x10^3/uL PT (9.4-12.5) SECONDS INR (0.8-3.0) Sodium (137-145) mmol/L Potassium (3.5-5.1) mmol/L Chloride (98-107) mmol/L Carbon Dioxide (22-30) mmol/L Anion Gap (5-15) MEQ/L BUN (7-17) mg/dL Creatinine (0.52-1.04) mg/dL Estimated GFR ML/MIN Glucose (74-106) mg/dL Calcium (8.4-10.2) mg/dL Total Bilirubin (0.2-1.3) mg/dL AST (14-36) U/L ALT (0-35) U/L Alkaline Phosphatase (38-126) U/L Serum Total Protein (6.3-8.2) g/dL Albumin (3.5-5.0) g/dL - Radiology Exams Ordered Rad Exams-Entire Visit: Radiology Procedures Category Date Time Status KNEE (3 VIEWS) Stat Exams 06/29/23 13:37 Completed - Procedures and Test Procedures and Tests throughout Hospitalization: Therapy Orders & Screens 06/30/23 05:17 Oxygen Nasal Cannula 2 lpm Comment: Diagnosis: Intractable knee pain Final Diagnosis/Problem List - Final Discharge Diagnosis/Problem (1) Essential (primary) hypertension Current Visit: Yes Status: Acute Code(s): I10 - ESSENTIAL (PRIMARY) HYPERTENSION (2) Leukocytosis Current Visit: Yes Status: Acute Code(s): D72.829 - ELEVATED WHITE BLOOD CELL COUNT, UNSPECIFIED (3) Osteoporosis Current Visit: Yes Status: Acute Code(s): M81.0 - AGE-RELATED OSTEOPOROSIS W/O CURRENT PATHOLOGICAL FRACTURE (4) Patella fracture Current Visit: Yes Status: Acute Assessment & Plan: (1) Patella fracture Current Visit: Yes Status: Acute Assessment & Plan: -Left patella fracture: transverse and mildly displaced. Pain manage tonight, and ortho, Dr Hamilton, will see and plan surgery tomorrow. Code(s): S82.009A - UNSP FRACTURE OF UNSP PATELLA, INIT FOR CLOS FX (2) Leukocytosis Current Visit: Yes Status: Acute Assessment & Plan: -WBC 14.9 - due to stress response. Monitor. no fever, nor other complaint to suspect infection Code(s): D72.829 - ELEVATED WHITE BLOOD CELL COUNT, UNSPECIFIED (3) Essential (primary) hypertension Current Visit: Yes Status: Acute Assessment & Plan: -BP high on arrival due to the pain. Resumed home meds - Amlodipine and Lisinopril. Added Hydralazine prn for SBP > 160, DBP > 100 Code(s): I10 - ESSENTIAL (PRIMARY) HYPERTENSION (4) Osteoporosis Current Visit: Yes Status: Acute Assessment & Plan: -Continue calcium supplement. Follow-up with PCP for close monitoring Code(s): M81.0 - AGE-RELATED OSTEOPOROSIS W/O CURRENT PATHOLOGICAL FRACTURE Code(s): S82.009A - UNSP FRACTURE OF UNSP PATELLA, INIT FOR CLOS FX - Discharge Discharge Date: 06/30/23 Disposition: DC TO [facility] Condition: Stable Prescriptions: New Oxycodone HCl/Acetaminophen [Percocet 5-325 mg Tablet] 1 each PO Q8H PRN PRN #6 tablet MDD 3 PRN Reason: Moderate To Severe Pain Continue Lisinopril 20 mg [Zestril 20 MG] 20 mg PO DAILY Amlodipine Besylate 5 mg [Norvasc 5 mg] 5 mg PO DAILY Amitriptyline HCl 25 mg [Amitriptyline 25 mg Tablet] 25 mg PO QHS Cyanocobalamin (Vitamin B-12) [B-12] 1,000 mg PO DAILY Calcium Carbonate/Vitamin D3 [Calcium 600 mg-D3 10 Mcg Sfgl] 600 mg PO DAILY Instructions: Acute Pain, Adult (DC) Additional Instructions: SEE ORTHOPEDIST AT [facility] TODAY. Forms: Ambulance Transport Record
== END 2023-06-30 07:08 | disposition home or self-care (01) ==
LOC: ED 13:21 → MED SURG 18:11
PROVIDERS: ADMIT Internal Medicine; ATTEND Internal Medicine
DX: S82.009A Unspecified fracture of unspecified patella, initial encounter for closed fracture (principal); I10 Essential (primary) hypertension; D72.829 Elevated white blood cell count, unspecified; M81.0 Age-related osteoporosis without current pathological fracture; W19.XXXA Unspecified fall, initial encounter; Z79.899 Other long term (current) drug therapy; Z20.828 Contact with and (suspected) exposure to other viral communicable diseases
CPT/HCPCS: 36000; 36415; 73562; 80053; 85025; 85610; 93005; 94762; 96374; 96375; 96376; 99285; G0378; J1644; J2270; J2405; L1830; A9270-GY